=== PATIENT | female | born 1960 | race Caucasian/White ===

== ENCOUNTER 2019-11-12 14:50 | Outpatient (CLI) | payer BC, SELFPAY ==
--- NOTE | ~2019-11-12 | MM_ITS ---
EXAMINATION: MM screening [facility] BI w [facility] HISTORY: Screening mammogram TECHNIQUE: Craniocaudal and mediolateral oblique 3-D tomosynthesis images were obtained and synthetic 2-D images were generated. CAD analysis was submitted and interpreted. COMPARISON: 11/01/2018, 10/26/2017, 09/29/2016 bilateral digital screening mammogram examinations BREAST PARENCHYMAL COMPOSITION: FINDINGS: There is no evidence of suspicious mass, calcification, or architectural distortion to sugg est malignancy in either breast. There has been no suspicious interval change. IMPRESSION: 1. No mammographic evidence of malignancy. 2. Recommend routine screening mammography in one year. BI-RADS Category 1: Negative Reviewed, dictated and finalized at location A.
== END 2019-11-12 14:51 | disposition home or self-care (01) ==
LOC: CHSIMG 14:52
PROVIDERS: PCP Internal Medicine; Visit Provider Internal Medicine
DX: Z12.31 Encounter for screening mammogram for malignant neoplasm of breast (principal)
CPT/HCPCS: 77063; 77067

== ENCOUNTER 2020-04-30 11:56 | Outpatient (CLI) | payer BC, SELFPAY ==
[2020-05-01 01:17] LABS: SARS-CoV-2 RNA PCR Positive
== END 2020-04-30 11:57 | disposition home or self-care (01) ==
LOC: CHSLAB 12:00
PROVIDERS: PCP Internal Medicine; Visit Provider Internal Medicine
DX: U07.1 COVID-19 (principal)
CPT/HCPCS: 87635; C9803; U0003

== ENCOUNTER 2020-11-19 15:20 | Outpatient (CLI) | payer BC, SELFPAY ==
--- NOTE | ~2020-11-19 | MM_ITS ---
EXAMINATION: MM screening [facility] BI w [facility] HISTORY: Screening mammogram TECHNIQUE: Craniocaudal and mediolateral oblique 3-D tomosynthesis images were obtained and synthetic 2-D images were generated. CAD analysis was submitted and interpreted. COMPARISON: 11/12/2019, 11/01/2018, 10/26/2017 BREAST PARENCHYMAL COMPOSITION: There are scattered areas of fibroglandular density. FINDINGS: There is no evidence of suspicious mass, calcification, or architectural distortion to sugg est malignancy in either breast. There has been no suspicious interval change. IMPRESSION: 1. No mammographic evidence of malignancy. 2. Recommend routine screening mammography in one year. BI-RADS Category 1: Negative Reviewed, dictated and finalized at location A.
== END 2020-11-19 15:21 | disposition home or self-care (01) ==
LOC: CHSIMG 15:21
PROVIDERS: PCP Internal Medicine; Visit Provider Internal Medicine
DX: Z12.31 Encounter for screening mammogram for malignant neoplasm of breast (principal)
CPT/HCPCS: 77063; 77067

== ENCOUNTER 2020-12-10 16:28 | Outpatient (RCR) | payer BC, SELFPAY ==
--- NOTE | 2020-12-26 12:09 | PTOPEVAL ---
Thank you for referring Winter Santiago to [facility].? The patient is scheduled to be seen for therapy? ____x/week for ___ weeks. Please review, sign, date and return this plan of care WINSOME. I agree with and certify that the following plan of care is medically necessary. Referring Physician Date Admitting Provider: Attending Provider: Bishop Maynard MD Referring Provider: *PT Outpatient Evaluation Start: 12/10/20 16:41 Freq: Status: Active Protocol: Document 12/10/20 16:43 BARBARA (Rec: 12/10/20 17:09 BARBARA [id number]) Therapy Assessment Status Assessment Status Assessment Status Evaluation Evaluation Information Problem Diagnosis L shoulder pain Onset 06/22/20 Additional Evaluation Detail quick dash = 25% functionally declined Subjective Information patient reports she has been Query Text:As Reported By Patient/ having pain and tightness in Family the L shoulder since getting her flu shot last year. she reports she has been fighting it since then, but reports she has difficulty with reaching behind her back, reaching for her seatbelt, and reaching far out from her side. Prior Level of Function Comments Additional Prior Level of Function prior to her flu shot last Comments year, patient reports no issues in the L shoulder. 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 Pain Assessment Timing of Pain Assessment Timing of Pain Assessment Assessment Pain Scale Pain Scale Used Numeric (1 - 10) Self Report Pain Assessment Left Shoulder(s) Reported Pain Level 0 Pain Frequency Acute,Intermittent Lowest Pain Intensity 0 Greatest Pain Intensity 8 Pain Score Pain Score 0: Self Report Interventions Used Interventions Used By Clinicians Activity or ADL's,Education, Electrical Stimulation, Exercise,Heat Upper Extremity Range of Motion Scapular/ Shoulder Range of Motion Right Shoulder Flexion - Active 160 Shoulder Flexion - Passive 165 Shoulder Medial Rotation - Active 70 Shoulder Lateral Rotation - Active 100 Left Shoulder Flexion - Active 152 Shoulder Flexion - Passive 158 Shoulder Medial Rotation - Active 55 Shoulder Lateral Rotation - Active 70 Upper Extremity Muscle Strength Testing General Upper Extremity Strength Gross Upper Extremity Strength Comments 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
--- NOTE | 2020-12-26 16:54 | PCPTNOTE ---
On 12/26/20, the student, [Brynn Pinto, SPT], provided care and completed [employer] documentation on this patient. I have reviewed the student's documentation and agree with the findings.
--- NOTE | 2021-01-01 17:32 | PCPTNOTE ---
On 01/01/21, the student, [Brynn Pinto, SPT], provided care and completed [employer] documentation on this patient. I have reviewed the student's documentation and agree with the findings.
--- NOTE | 2021-01-07 18:10 | PCPTNOTE ---
On 01/07/21, the student, [Brynn Pinto, SPT], provided care and completed [employer] documentation on this patient. I have reviewed the student's documentation and agree with the findings.
== END 2021-01-07 23:59 | disposition home or self-care (01) ==
LOC: CHSPT 16:28
PROVIDERS: PCP Internal Medicine; Visit Provider Internal Medicine
DX: M25.512 Pain in left shoulder (principal)
CPT/HCPCS: 97014; 97110; 97140; 97161; 97530; G0283

== ENCOUNTER 2021-04-27 20:22 | Day surgery (SDC) | payer BC, SELFPAY ==
--- NOTE | ~2021-04-27 | XR_ITS ---
EXAMINATION: XR chest 1V portable DATE: 04/27/2021 22:09 INDICATION: Cough. TECHNIQUE: A single frontal view of the chest was obtained. COMPARISON: None. FINDINGS: The chest demonstrates clear lungs without pneumonia, pleural effusion, or pneumothorax. Th e heart size is normal. IMPRESSION: 1. No acute cardiopulmonary disease. Reviewed, dictated and finalized at location A.
[2021-04-27 20:33] VITALS: BP 158/82; PULSE 100; RESP 20; TEMP 36.9; O2SAT 100
[2021-04-27 20:49] LABS: Basophils Absolute Auto 0.1 K/mm3 (0.0-0.1); Basophils Percent Auto 0.6 % (0.2-1.2); Eosinophils Percent Auto 0.2 % (0-4.4); Hemoglobin 14.9 g/dL (12.0-15.0); Immature Granulocyte Absolute 0.03 K/mm3 (0.00-0.031); Immature Granulocyte Percent A 0.3 % (0-0.5); Lymphocytes Absolute Auto 1.98 K/mm3 (0.9-3.2); Mean Corpuscular HGB Conc 32.4 g/dl (32-36); Mean Corpuscular Hemoglobin 30.5 pg (26-34); Mean Corpuscular Volume 94.3 fl (80-100); Mean Platelet Volume 9.2 fl (7.4-10.4); Monocytes Absolute Auto 0.6 K/mm3 (0.1-0.6); Monocytes Percent Auto 5.4 % (2.6-8.5); Neutrophils Absolute Auto 8.9 K/mm3 (1.3-6.7); Neutrophils Percent Auto 76.5 % (45.5-73.1); Platelet Count Result 317 k/mm3 (150-375); Red Blood Count 4.88 M/mm3 (4.2-5.4); Red Cell Distribution Width 12.1 % (11.5-14.5); White Blood Count 11.6 K/mm3 (4.5-10.0)
[2021-04-27 20:58] LABS: Alanine Aminotransferase 28 U/L (4-35); Albumin Level 4.7 g/dL (3.5-5.1); Alkaline Phosphatase 100 U/L (38-126); Anion Gap 10 mmol/L (8-16); Aspartate Amino Transferase 36 U/L (14-36); Bilirubin,Total 0.6 mg/dL (0.2-1.3); Blood Urea Nitrogen 17 mg/dL (7-17); Calcium 9.6 mg/dL (8.4-10.2); Carbon Dioxide 23 mmol/L (22-30); Chloride 108 mmol/L (98-107); Estimated CRCL calculation 50 ml/min; Estimated Glomerular Filt Rate 57; Glucose 134 mg/dL (65-110); Lipase 220 U/L (23-300); Potassium 3.7 mmol/L (3.4-5.0); Sodium 141 mmol/L (137-145)
[2021-04-27 21:07] LABS: Add Urine Microscopic? YES; Appearance Urine Clear (Clear); Bilirubin Urine Negative (Negative); Blood Urine 3+ (Negative); Color Urine Yellow (Yellow); Glucose Urine UA Negative (Negative); Ketones Urine Trace mg/dL (Negative); Leukocyte Esterase Ur 2+ LEU/UL (Negative); Mucus Urine Rare /lpf; Nitrate Urine Negative (Negative); Protein Urine Negative (Negative); Specific Grav Ur 1.017 (1.001-1.035); Squamous Epithelial Cell Urine Rare /hpf (Few); Urobilinogen Urine Negative mg/dL (<2.0); WBC Urine 16-20 /hpf
[2021-04-27] MEDS: NITROGLYCERIN SL 0.4 MG TABLET SUBLINGUAL (21:23)
[2021-04-27] MEDS: GLUCAGON FOR INJ 1 MG VIAL IV PUSH (21:35)
[2021-04-27] MEDS: diazePAM INJ (*CRX) 10 MG/2 ML SYRINGE 5 MG IV PUSH (22:26)
[2021-04-27 22:29] VITALS: O2SAT 99
[2021-04-27 22:30] VITALS: BP 140/82; PULSE 77; RESP 18; O2SAT 97
--- NOTE | 2021-04-27 22:39 | ED.GENADULT ---
HPI - General Adult General Chief complaint: Unspecified Stated complaint: food bolus? Time Seen by Provider: 04/27/21 20:53 Source: RN notes reviewed History of Present Illness HPI narrative: Patient presents to emergency department from home for food bolus. Patient states she was eating pork chops this evening and had taken the first bite and then felt like the food became stuck in her lower throat she states she has pain in the lower mid chest pain is worse with attempting to swallow she states that she is unable to keep down her secretions whenever she tries to drink anything it comes mainly back up she did try drinking some soda at home to relieve the issues with no relief she states she is had no history of food bolus before in the past denies any fevers or chills Related Data Home Medications Medication Instructions Recorded Confirmed nabumetone mg 04/27/21 pravastatin 40 mg PO DAILY 04/27/21 Allergies Allergy/AdvReac Type Severity Reaction Status Date / Time NKDA Allergy Unknown Unknown Uncoded 04/27/21 21:59 Review of Systems Review of Systems: Gen.: Denies fevers or chills ENT: Denies congestion Respiratory: Denies shortness of breath or cough CV: Reports lower midsternal chest pain GI: See HPI Musculoskeletal: Denies back pain or muscle pain Neuro: Denies headache Skin: Denies rash Except as documented, all other systems reviewed and negative [facility] Past Medical History Medical History (Updated 04/27/21 @ 23:20 by Tyrell Gibbs DO) Hypercholesterolemia Social History Social History (Updated 04/27/21 @ 22:41 by Tyrell Gibbs DO) Smoking status: Never smoker Exam Narrative: APPEARANCE: No acute distress, nontoxic, resting in bed EYES: EOMI HEENT: Normocephalic, atraumatic, OMM airway patent RESPIRATORY: No respiratory distress Clear to auscultation bilaterally with no rhonchi wheezing or rales. CARDIOVASCULAR: Regular rate and rhythm without murmurs rubs or gallops. ABDOMINAL: Soft, nontender, nondistended, no rebound or guarding MUSCULOSKELETAl: Moves all extremities. NEURO: Awake and alert. Following commands, speech normal, no focal deficits SKIN:: Warm, dry. No rashes lesions or abrasions PSYCHIATRIC: Normal affect/mood, Course Course Emergency Course: Patient was given soda and jumped up and down in room with no passage of food bolus patient was then given nitroglycerin dissolved in 10 mL of water again with unable to pass and vomiting of water patient was then given glucagon and then Valium again with no movement of food bolus All discussed Dr. Key presentation work-up will take patient to the endoscopy lab at this time Constipation plan for endoscopy lab in agreement Vital Signs Vital signs: Vital Signs Temperature 98.5 F 04/27/21 20:33 Pulse Rate 100 04/27/21 20:33 Respiratory Rate 20 04/27/21 20:33 Blood Pressure 158/82 H 04/27/21 20:33 Pulse Oximetry 100 04/27/21 20:33 Temperature 98.5 F 04/27/21 20:33 Pulse Rate 77 04/27/21 22:30 Respiratory Rate 18 04/27/21 22:30 Blood Pressure 140/82 04/27/21 22:30 Pulse Oximetry 97 04/27/21 22:30 Medical Decision Making Vital Signs Vital Signs: Vital Signs Temperature 98.5 F 04/27/21 20:33 Pulse Rate 100 04/27/21 20:33 Respiratory Rate 20 04/27/21 20:33 Blood Pressure 158/82 H 04/27/21 20:33 Pulse Oximetry 100 04/27/21 20:33 Temperature 98.5 F 04/27/21 20:33 Pulse Rate 77 04/27/21 22:30 Respiratory Rate 18 04/27/21 22:30 Blood Pressure 140/82 04/27/21 22:30 Pulse Oximetry 97 04/27/21 22:30 Lab Data Result diagrams: 04/27/21 20:39 04/27/21 20:39 Labs: Lab Results 04/27/21 04/27/21 04/27/21 Range/Units 20:39 20:39 20:43 WBC 11.6 H (4.5-10.0) K/mm3 RBC 4.88 (4.2-5.4) M/mm3 Hgb 14.9 (12.0-15.0) g/dL Hct 46.0 (37.0-47.0) % MCV 94.3 (80-100) fl MCH 30.5 (26-34) pg MCHC 3
[2021-04-27] MEDS: SODIUM CHLORIDE 0.9% IV 1,000 ML 999 ML IV CONT (23:19)
--- NOTE | 2021-04-27 23:52 | WPDANESEPP ---
Anes - Eval Pre Procedure Procedure: EGD Date/Time: 04/27/21 23:52 Surgeon: Shahid Pre Op Diagnosis: food bolus? Patient Data Age: 60 Gender: F Height: 1.68 m Weight: 65.9 kg Last Vital Signs Temp 36.9 C 04/27/21 20:33 Pulse 77 04/27/21 22:30 Resp 18 04/27/21 22:30 BP 140/82 04/27/21 22:30 Pulse Ox 97 04/27/21 22:30 Allergies Allergy/AdvReac Type Severity Reaction Status Date / Time NKDA Allergy Unknown Unknown Uncoded 04/27/21 21:59 Home Medications Medication Instructions Recorded Confirmed Type nabumetone mg 04/27/21 History pravastatin 40 mg PO DAILY 04/27/21 History Laboratory Tests 04/27/21 04/27/21 04/27/21 20:39 20:39 20:43 WBC 11.6 K/mm3 H K/mm3 (4.5-10.0) RBC 4.88 M/mm3 M/mm3 (4.2-5.4) Hgb 14.9 g/dL g/dL (12.0-15.0) Hct 46.0 % % (37.0-47.0) MCV 94.3 fl fl (80-100) MCH 30.5 pg pg (26-34) MCHC 32.4 g/dl g/dl (32-36) RDW 12.1 % % (11.5-14.5) Plt Count 317 k/mm3 k/mm3 (150-375) MPV 9.2 fl fl (7.4-10.4) Immature Gran % (Auto) 0.3 % % (0-0.5) Neut % (Auto) 76.5 % H % (45.5-73.1) Lymph % (Auto) 17.0 % L % (18.3-44.2) [place] % (Auto) 5.4 % % (2.6-8.5) Eos % (Auto) 0.2 % % (0-4.4) Baso % (Auto) 0.6 % % (0.2-1.2) Lymph # (Auto) 1.98 K/mm3 K/mm3 (0.9-3.2) [place] # (Auto) 0.6 K/mm3 K/mm3 (0.1-0.6) Eos # (Auto) 0.0 K/mm3 K/mm3 (0-0.3) Baso # (Auto) 0.1 K/mm3 K/mm3 (0.0-0.1) Abs Immat Gran (auto) 0.03 K/mm3 K/mm3 (0.00-0.031) Absolute Neuts (auto) 8.9 K/mm3 H K/mm3 (1.3-6.7) Absolute Nucleated RBC 0.0 K/mm3 K/mm3 (0.0-0.012) Nucleated RBC % 0.0 % % (0.0-0.2) Sodium 141 mmol/L mmol/L (137-145) Potassium 3.7 mmol/L mmol/L (3.4-5.0) Chloride 108 mmol/L H mmol/L (98-107) Carbon Dioxide 23 mmol/L mmol/L (22-30) Anion Gap 10 mmol/L mmol/L (8-16) BUN 17 mg/dL mg/dL (7-17) Creatinine 1.00 mg/dL mg/dL (0.7-1.0) Estim Creat Clear Calc 50 ml/min ml/min Estimated GFR 57 L (59 - ) Glucose 134 mg/dL H mg/dL (65-110) Calcium 9.6 mg/dL mg/dL (8.4-10.2) Total Bilirubin 0.6 mg/dL mg/dL (0.2-1.3) AST 36 U/L U/L (14-36) ALT 28 U/L U/L (4-35) Alkaline Phosphatase 100 U/L U/L (38-126) Total Protein 8.0 g/dL g/dL (6.3-8.2) Albumin 4.7 g/dL g/dL (3.5-5.1) Lipase 220 U/L U/L (23-300) Urine Color Yellow (Yellow) Urine Appearance Clear (Clear) Urine pH 5.0 (5.0-9.0) Ur Specific [place] 1.017 (1.001-1.035) Urine Protein Negative mg/dL mg/dL (Negative) Urine Glucose (UA) Negative mg/dL mg/dL (Negative) Urine Ketones Trace mg/dL mg/dL (Negative) Ur Blood (Man) 3+ H (Negative) Urine Nitrate Negative (Negative) Urine Bilirubin Negative (Negative) Urine Urobilinogen Negative mg/dL mg/dL (<2.0) Leukocyte Esterase Rfl 2+ ANNE/UL H ANNE/UL (Negative) Urine RBC 11-20 /hpf H /hpf (0-2) Urine WBC 16-20 /hpf H /hpf Ur Squamous Epith Cells Rare /hpf /hpf (Few) Urine Mucus Rare /lpf /lpf Patient hx anesthesia problems: none Family hx anesthesia problems: none [facility] Past Medical History Medical History (Updated 04/27/21 @ 23:20 by Tyrell Gibbs DO) Hypercholesterolemia Social History Social History (Updated 04/27/21 @ 22:41 by Tyrell Gibbs DO) Smoking status: Never smoker Exam Day of Procedure 04/27/21 23:52
[2021-04-28 00:30] VITALS: BP 140/82; PULSE 93; RESP 18; O2SAT 100
[2021-04-28] MEDS: LACTATED RINGERS 1,000 ML 150 ML IV CONT ×2 (00:31→00:33)
--- NOTE | 2021-04-28 00:31 | WPDANESEPPF ---
Anes - Initial Pre Proc Eval Procedure: Operation Date: 04/28/21 00:30 Proposed Procedures p Esophagogastroduodenoscopy - Maxwell Hanna MD Date/Time: 04/28/21 00:31 Surgeon: Maxwell Hanna MD Pre Op Diagnosis: food bolus? Patient Data Age: 60 Gender: F Height: 1.68 m Weight: 65.9 kg Last Vital Signs Temp 36.9 C 04/27/21 20:33 Pulse 77 04/27/21 22:30 Resp 18 04/27/21 22:30 BP 140/82 04/27/21 22:30 Pulse Ox 97 04/27/21 22:30 Allergies Allergy/AdvReac Type Severity Reaction Status Date / Time NKDA Allergy Unknown Unknown Uncoded 04/27/21 21:59 Home Medications Medication Instructions Recorded Confirmed Type nabumetone mg 04/27/21 History pravastatin 40 mg PO DAILY 04/27/21 History nitrofurantoin monohyd/m-cryst 100 mg PO Q12H 5 Days #10 cap 04/28/21 Rx [Macrobid] Laboratory Tests 04/27/21 04/27/21 04/27/21 20:39 20:39 20:43 WBC 11.6 K/mm3 H K/mm3 (4.5-10.0) RBC 4.88 M/mm3 M/mm3 (4.2-5.4) Hgb 14.9 g/dL g/dL (12.0-15.0) Hct 46.0 % % (37.0-47.0) MCV 94.3 fl fl (80-100) MCH 30.5 pg pg (26-34) MCHC 32.4 g/dl g/dl (32-36) RDW 12.1 % % (11.5-14.5) Plt Count 317 k/mm3 k/mm3 (150-375) MPV 9.2 fl fl (7.4-10.4) Immature Gran % (Auto) 0.3 % % (0-0.5) Neut % (Auto) 76.5 % H % (45.5-73.1) Lymph % (Auto) 17.0 % L % (18.3-44.2) [place] % (Auto) 5.4 % % (2.6-8.5) Eos % (Auto) 0.2 % % (0-4.4) Baso % (Auto) 0.6 % % (0.2-1.2) Lymph # (Auto) 1.98 K/mm3 K/mm3 (0.9-3.2) [place] # (Auto) 0.6 K/mm3 K/mm3 (0.1-0.6) Eos # (Auto) 0.0 K/mm3 K/mm3 (0-0.3) Baso # (Auto) 0.1 K/mm3 K/mm3 (0.0-0.1) Abs Immat Gran (auto) 0.03 K/mm3 K/mm3 (0.00-0.031) Absolute Neuts (auto) 8.9 K/mm3 H K/mm3 (1.3-6.7) Absolute Nucleated RBC 0.0 K/mm3 K/mm3 (0.0-0.012) Nucleated RBC % 0.0 % % (0.0-0.2) Sodium 141 mmol/L mmol/L (137-145) Potassium 3.7 mmol/L mmol/L (3.4-5.0) Chloride 108 mmol/L H mmol/L (98-107) Carbon Dioxide 23 mmol/L mmol/L (22-30) Anion Gap 10 mmol/L mmol/L (8-16) BUN 17 mg/dL mg/dL (7-17) Creatinine 1.00 mg/dL mg/dL (0.7-1.0) Estim Creat Clear Calc 50 ml/min ml/min Estimated GFR 57 L (59 - ) Glucose 134 mg/dL H mg/dL (65-110) Calcium 9.6 mg/dL mg/dL (8.4-10.2) Total Bilirubin 0.6 mg/dL mg/dL (0.2-1.3) AST 36 U/L U/L (14-36) ALT 28 U/L U/L (4-35) Alkaline Phosphatase 100 U/L U/L (38-126) Total Protein 8.0 g/dL g/dL (6.3-8.2) Albumin 4.7 g/dL g/dL (3.5-5.1) Lipase 220 U/L U/L (23-300) Urine Color Yellow (Yellow) Urine Appearance Clear (Clear) Urine pH 5.0 (5.0-9.0) Ur Specific [place] 1.017 (1.001-1.035) Urine Protein Negative mg/dL mg/dL (Negative) Urine Glucose (UA) Negative mg/dL mg/dL (Negative) Urine Ketones Trace mg/dL mg/dL (Negative) Ur Blood (Man) 3+ H (Negative) Urine Nitrate Negative (Negative) Urine Bilirubin Negative (Negative) Urine Urobilinogen Negative mg/dL mg/dL (<2.0) Leukocyte Esterase Rfl 2+ ANNE/UL H ANNE/UL (Negative) Urine RBC 11-20 /hpf H /hpf (0-2) Urine WBC 16-20 /hpf H /hpf Ur Squamous Epith Cells Rare /hpf /hpf (Few) Urine Mucus Rare /lpf /lpf Patient hx anesthesia problems: none Family hx anesthesia problems: none PMFSH Past Medical History Medical History Hypercholesterolemia Social History Social Histor
--- NOTE | 2021-04-28 00:34 | PM.HPGS ---
History of Present Illness History of Present Illness Consent: Risks, benefits, and alternatives have been discussed and questions answered. Patient agrees to proceed with procedure. Chief complaint: food bolus? Narrative: Winter Santiago is a 60 year old female with food bolus after ate pork around 6pm, medical treatment in the ER did not help and still symptomatic. Never had EGD. Review of Systems Constitutional: Constitutional: Denies headache(s) and Denies weakness Eyes: Eyes: Denies blurry vision ENT: Reports Normal hearing present, Denies headache(s) and Denies neck pain Cardiovascular: Cardiovascular: Denies chest pain and Denies dyspnea Respiratory: Respiratory: Denies dyspnea Gastrointestinal: Gastrointestinal: Reports no additional gastrointestinal complaints Genitourinary: Genitourinary: Denies dysuria Musculoskeletal: Musculoskeletal: Denies neck pain Integumentary/Breasts: Skin/Breast: Denies dry skin Neurologic: Reports Normal hearing present, Denies headache(s) and Denies weakness Psychiatric: Psychiatric: Denies anxiety Endocrine: Endocrine: Denies change in body appearance Hematologic/Lymphatic: Hematologic/Lymphatic: Denies easy bleeding Allergic/Immunologic: Allergic/Immunologic: Denies urticaria PMFSH Past Medical History Medical History Hypercholesterolemia Social History Social History Smoking status: Never smoker Meds Home Medications and Allergies Home Medications Medication Instructions Recorded Confirmed Type nabumetone mg 04/27/21 History pravastatin 40 mg PO DAILY 04/27/21 History nitrofurantoin monohyd/m-cryst 100 mg PO Q12H 5 Days #10 cap 04/28/21 Rx [Macrobid] Allergies Allergy/AdvReac Type Severity Reaction Status Date / Time NKDA Allergy Unknown Unknown Uncoded 04/27/21 21:59 Vital Signs Vital Signs - 24 hr 04/27/21 20:33 04/27/21 22:29 04/27/21 22:30 Temperature 98.5 F Pulse Rate 100 77 Respiratory Rate 20 18 Blood Pressure 158/82 H 140/82 Pulse Oximetry 100 99 97 Exam Const: General: comfortable and no acute distress HENMT: General nose exam: Normal nares present Eyes: General: appearance normal, both eyes and all related structures Neck: Neck: no JVD Resp: Auscultation: clear to auscultation bilaterally Cardio: Rate: regular rate Rhythm: regular rhythm GI: Inspection: non-distended GI Palp: Yes Soft to palpation Skin: General skin exam: normal color Neuro: General: gait normal Speech: normal speech Extrem: General: normal to inspection Psych: Mental Status: mental status grossly normal Assessment and Plan Assessment and plan (1) Food impaction of esophagus: Code(s): T18.128A - Food in esophagus causing other injury, initial encounter Status: Acute Assessment and Plan: urgent EGD
[2021-04-28 00:48] VITALS: BP 118/69; PULSE 83; RESP 23; O2SAT 100
[2021-04-28 00:58] VITALS: BP 136/75; PULSE 84; RESP 17; O2SAT 100
[2021-04-28 01:08] VITALS: BP 129/82; PULSE 76; RESP 17; O2SAT 100
== END 2021-04-28 01:23 | disposition home or self-care (01) ==
LOC: ANHED 23:20 → ANHENDO 04-28 00:20
PROVIDERS: Emergency Provider Emergency Medicine; PCP Internal Medicine; Visit Provider Internal Medicine Gastroenterology
PROC: 0DJ08ZZ Inspection of Upper Intestinal Tract, Via Natural or Artificial Opening Endoscopic (ICD-10-PCS; CPT 43235; principal; 2021-04-28 00:30)
DX: T18.128A Food in esophagus causing other injury, initial encounter (principal); K22.2 Esophageal obstruction; K44.9 Diaphragmatic hernia without obstruction or gangrene; E78.00 Pure hypercholesterolemia, unspecified; N39.0 Urinary tract infection, site not specified
CPT/HCPCS: 43249; 43247; 36415; 71045; 80053; 81001; 81025; 83690; 85025; 87086; 87088; 96361; 96374; 96375; 99285; A9270; C1726; J1610; J2704; J3360; J7030; J7120

== ENCOUNTER → 2021-06-05 04:50 | Outpatient (CLI) | payer BC, SELFPAY ==
[2021-06-05 17:47] LABS: SARS-CoV-2 RNA PCR Negative
== END ==
PROVIDERS: PCP Internal Medicine; Visit Provider Internal Medicine Gastroenterology
DX: Z01.812 Encounter for preprocedural laboratory examination (principal); Z20.822 Contact with and (suspected) exposure to COVID-19
CPT/HCPCS: C9803; U0003; U0005

== ENCOUNTER 2021-06-08 00:41 | Day surgery (SDC) | payer BC, SELFPAY ==
[2021-05-22 11:23] VITALS: BMI 24.2
--- NOTE | 2021-06-05 18:52 | WPDANESEPPF ---
Anes - Initial Pre Proc Eval Procedure: Operation Date: 06/08/21 08:00 Proposed Procedures p Esophagogastroduodenoscopy - Maxwell Hanna MD Date/Time: 06/05/21 18:52 Surgeon: Maxwell Hanna MD Pre Op Diagnosis: schatzki's ring, dysphagia Patient Data Age: 60 Gender: F Height: 1.68 m Weight: 68 kg Allergies Allergy/AdvReac Type Severity Reaction Status Date / Time NKDA Allergy Unknown Unknown Uncoded 05/22/21 11:20 Home Medications Medication Instructions Recorded Confirmed Type nabumetone 750 mg PO TID PRN 04/27/21 06/08/21 History pravastatin 20 mg PO DAILY 04/27/21 06/08/21 History cholecalciferol (vitamin D3) 50 mcg PO DAILY 05/22/21 06/08/21 History [Vitamin D3] multivitamin 1 tablet PO DAILY 05/22/21 06/08/21 History vitamin E 400 unit PO DAILY 05/22/21 06/08/21 History Patient hx anesthesia problems: none Family hx anesthesia problems: none Results Review: All pre-operative results and documents have been reviewed as part of the pre-operative evaluation. [facility] Past Medical History Medical History Hypercholesterolemia Surgical History Surgical History (Updated 06/05/21 @ 18:53 by Samson Cancino DO) History of appendectomy History of hysterectomy Social History Social History Smoking status: Never smoker Alcohol intake: current Living arrangements: with family Spiritual care concerns: No Anes - Eval Final PreProcedure Day of Procedure 06/05/21 18:52 Patient weight: normal Heart: regular rate and rhythm Lungs: clear to auscultation and normal air movement Airway: Mallampati scale class II Neurological: alert and oriented Last oral intake: >/= 8 hours ASA classification: II Emergent: no Anesthetic plan: proceed Anesthesia type and monitoring: general GIVS and standard monitoring Results Review: All pre-operative results and documents have been reviewed as part of the pre-operative evaluation. Informed Consent: The patient's anesthetic plan and its attendant risks and benefits were discussed with the patient/family/POA. Questions were solicited and answers provided to the satisfaction of the patient/family/POA.
[2021-06-08 06:50] VITALS: BP 129/69; PULSE 65; RESP 16; TEMP 36.6; O2SAT 100
[2021-06-08] MEDS: LACTATED RINGERS 1,000 ML 150 ML IV CONT (07:02)
--- NOTE | 2021-06-08 07:54 | PM.HPGS ---
History of Present Illness History of Present Illness Consent: Risks, benefits, and alternatives have been discussed and questions answered. Patient agrees to proceed with procedure. Chief complaint: schatzki's ring, dysphagia Narrative: Winter Santiago is a 60 year old female with food bolus few weeks ago, ring dilated up to 16mm with balloon, now better Review of Systems Constitutional: Constitutional: Denies headache(s) and Denies weakness Eyes: Eyes: Denies blurry vision ENT: Reports Normal hearing present, Denies headache(s) and Denies neck pain Cardiovascular: Cardiovascular: Denies chest pain and Denies dyspnea Respiratory: Respiratory: Denies dyspnea Gastrointestinal: Gastrointestinal: Reports no additional gastrointestinal complaints Genitourinary: Genitourinary: Denies dysuria Musculoskeletal: Musculoskeletal: Denies neck pain Integumentary/Breasts: Skin/Breast: Denies dry skin Neurologic: Reports Normal hearing present, Denies headache(s) and Denies weakness Psychiatric: Psychiatric: Denies anxiety Endocrine: Endocrine: Denies change in body appearance Hematologic/Lymphatic: Hematologic/Lymphatic: Denies easy bleeding Allergic/Immunologic: Allergic/Immunologic: Denies urticaria PMFSH Past Medical History Medical History (Updated 06/08/21 @ 07:55 by Maxwell Hanna MD) Esophageal ring Hypercholesterolemia Surgical History Surgical History (Updated 06/05/21 @ 18:53 by Samson Cancino DO) History of appendectomy History of hysterectomy Social History Social History Smoking status: Never smoker Alcohol intake: current Living arrangements: with family Spiritual care concerns: No Meds Home Medications and Allergies Home Medications Medication Instructions Recorded Confirmed Type nabumetone 750 mg PO TID PRN 04/27/21 06/08/21 History pravastatin 20 mg PO DAILY 04/27/21 06/08/21 History cholecalciferol (vitamin D3) 50 mcg PO DAILY 05/22/21 06/08/21 History [Vitamin D3] multivitamin 1 tablet PO DAILY 05/22/21 06/08/21 History vitamin E 400 unit PO DAILY 05/22/21 06/08/21 History Allergies Allergy/AdvReac Type Severity Reaction Status Date / Time NKDA Allergy Unknown Unknown Uncoded 05/22/21 11:20 Vital Signs Vital Signs - 24 hr 06/08/21 06:50 Temperature 97.8 F Pulse Rate 65 Respiratory Rate 16 Blood Pressure 129/69 Pulse Oximetry 100 Exam Const: General: comfortable and no acute distress HENMT: General nose exam: Normal nares present Eyes: General: appearance normal, both eyes and all related structures Neck: Neck: no JVD Resp: Auscultation: clear to auscultation bilaterally Cardio: Rate: regular rate Rhythm: regular rhythm GI: Inspection: non-distended GI Palp: Yes Soft to palpation Skin: General skin exam: normal color Neuro: General: gait normal Speech: normal speech Extrem: General: normal to inspection Psych: Mental Status: mental status grossly normal Assessment and Plan Assessment and plan (1) Esophageal ring: Code(s): K22.2 - Esophageal obstruction Status: Acute Assessment and Plan: egd with dilation
[2021-06-08 08:10] VITALS: BP 103/64; PULSE 68; RESP 16; O2SAT 100
[2021-06-08 08:20] VITALS: BP 114/70; PULSE 61; RESP 15; O2SAT 100
[2021-06-08 08:30] VITALS: BP 121/73; PULSE 58; RESP 15; O2SAT 100
== END 2021-06-08 08:58 | disposition home or self-care (01) ==
PROVIDERS: PCP Internal Medicine; Visit Provider Internal Medicine Gastroenterology
PROC: 0DJ08ZZ Inspection of Upper Intestinal Tract, Via Natural or Artificial Opening Endoscopic (ICD-10-PCS; CPT 43235; principal; 2021-06-08 08:00)
DX: R13.19 Other dysphagia (principal); K22.2 Esophageal obstruction; K44.9 Diaphragmatic hernia without obstruction or gangrene; K31.7 Polyp of stomach and duodenum; E78.00 Pure hypercholesterolemia, unspecified
CPT/HCPCS: 43249; C1726; J2001; J2704; J7120

== ENCOUNTER 2021-11-20 06:56 | Outpatient (CLI) | payer BC, SELFPAY ==
--- NOTE | ~2021-11-20 | MM_ITS ---
EXAMINATION: MM screening [facility] BI w [facility] HISTORY: Screening mammogram TECHNIQUE: Craniocaudal and mediolateral oblique 3-D tomosynthesis images were obtained and synthetic 2-D images were generated. CAD analysis was submitted and interpreted. COMPARISON: 11/19/2020, 11/12/2019, 11/01/2018 BREAST PARENCHYMAL COMPOSITION: There are scattered areas of fibroglandular density. FINDINGS: There is no suspicious mass, calcification, or architectural distortion to suggest malignan cy in either breast. There has been no suspicious interval change. IMPRESSION: 1. No mammographic evidence of malignancy. 2. Recommend routine screening mammography in one year. BI-RADS Category 1: Negative Reviewed, dictated and finalized at location A.
== END 2021-11-20 06:57 | disposition home or self-care (01) ==
LOC: CHSIMG 06:58
PROVIDERS: PCP Internal Medicine; Visit Provider Internal Medicine
DX: Z12.31 Encounter for screening mammogram for malignant neoplasm of breast (principal)
CPT/HCPCS: 77063; 77067

== ENCOUNTER 2021-12-25 14:57 | Outpatient (CLI) | payer BC, SELFPAY ==
--- NOTE | ~2021-12-25 | DEXA_ITS ---
Bone Density Report Name: VIRGIE COLEY Age: 61 Sex: Female Ethnicity: White Date of : 1960 Indication: postmenopausal; screening for osteoporosis; height loss; hysterectomy; Referring Provider: Bishop Maynard Study: Bone densitometry was performed. Exam Date: December 25, 2021 Accession number: [id number] Bone Density: Region BMD T-score Z-score Classification AP Spine(L1-L4) 0.830 -2.0 -0.5 Osteopenia Femoral Neck (Left) 0.692 -1.4 -0.1 Osteopenia Total Hip (Left) 0.777 -1.4 -0.4 Osteopenia Femoral Neck (Right) 0.639 -1.9 -0.6 Osteopenia Total Hip (Right) 0.770 -1.4 -0.4 Osteopenia Femoral Neck Mean 0.665 -1.7 -0.4 Osteopenia Total Hip Mean 0.774 -1.4 -0.4 Osteopenia World Health Organization criteria for BMD impression classify patients as: Normal (T-score at or above -1.0), Osteopenia (T-score between -1.0 and -2.5), or Osteoporosis (T-score at or below -2.5). 10-year Fracture Risk(1): Major Osteoporotic Fracture 8.6% Hip Fracture 1.0% Reported Risk Factors: [place] (), Neck BMD=0.639, BMI=22.6 (1) FRAX(R) Version 3.08. Fracture probability calculated for an untreated patient. Fracture probability may be lower if the patient has received treatment. Clinical Information Provided by Patient: Has used the following medications: Vitamin D, Calcium Has the following medical conditions: Hysterectomy Patient maximum height was 67 Menopause Age: 51 No regular weight bearing exercise Does not regularly consume dairy products Drinks caffeinated beverages Onset of menses at age 17 Number of children 2 Impression: The patient has low bone mass, based on the Total Spine T-score. Discussion: BONE DENSITY IS LOW AT ONE OR MORE SKELETAL SITES. This patient's lowest T-score is low at one or more skeletal sites. It meets the World Health Organization's (WHO) criteria for ?low bone mass? (T-score between -1.0 and -2.5). The patient's 10-year risk of fracture as calculated by FRAX is less than the threshold where pharmacological therapy is recommended by the National Osteoporosis Foundation (NOF). However, all treatment decisions require clinical judgment and consideration of individual patient factors, including patient preferences, comorbidities, previous drug use, risk factors not captured in the FRAX model (e.g., frailty, falls, vitamin D deficiency, increased bone turnover, interval significant decline in bone density) and possible under or overestimation of fracture risk by FRAX. The patient should follow a healthful lifestyle (good nutrition with adequate calcium and vitamin D, and appropriate weight-bearing exercise). Follow-Up: Consider repeating this study in 2 to 3 years to reassess this patient's status, or sooner if there is some new clinical in
== END 2021-12-25 14:58 | disposition home or self-care (01) ==
LOC: CHSIMG 14:59
PROVIDERS: PCP Internal Medicine; Visit Provider Internal Medicine
DX: Z13.820 Encounter for screening for osteoporosis (principal)
CPT/HCPCS: 77080

== ENCOUNTER 2022-01-21 01:03 | Day surgery (SDC) | payer BC, SELFPAY ==
[2022-01-04 10:20] VITALS: BMI 22.4
[2022-01-21 06:43] VITALS: BP 122/82; PULSE 93; RESP 16; TEMP 36.3; O2SAT 100
[2022-01-21] MEDS: LACTATED RINGERS 1,000 ML 150 ML IV CONT (06:53)
--- NOTE | 2022-01-21 07:51 | PM.IMHP ---
H&P: HPI History of Present Illness Date/Time: 01/21/22 07:51 Chief Complaint: Screening for colorectal cancer Narrative: this is a 61-year-old woman who presents for colonoscopy. Her last colonoscopy was 10 years ago and was normal. She only has a family history of colon cancer in her grandfather, but no first-degree relatives. She denies any hematochezia or melena. Review of Systems Review of Systems: All systems reviewed & are unremarkable except as noted in HPI and below Constitutional: Constitutional: Denies chills, Denies fever(s), Denies headache(s) and Denies weight loss Eyes: Eyes: Denies change in vision ENT: Denies dizziness, Denies headache(s), Denies neck mass and Denies throat swelling Cardiovascular: Cardiovascular: Denies chest pain, Denies lightheadedness and Denies dyspnea Respiratory: Respiratory: Denies cough, Denies dyspnea and Denies wheezing Gastrointestinal: Gastrointestinal: Denies abdominal pain, Denies change in bowel habits, Denies nausea and Denies vomiting Genitourinary: Genitourinary: Denies hematuria and Denies dysuria Musculoskeletal: Musculoskeletal: Reports as per HPI Integumentary/Breasts: Skin/Breast: Reports as per HPI Neurologic: Denies dizziness and Denies headache(s) Allergic/Immunologic: Allergic/Immunologic: Denies throat swelling and Denies wheezing PMF Past Medical History Medical History (Updated 01/21/22 @ 07:52 by Roberth Garcia DO) Esophageal ring Hypercholesterolemia Surgical History Surgical History (Updated 06/05/21 @ 18:53 by Samson Cancino DO) History of appendectomy History of hysterectomy Social History Social History Smoking status: Never smoker Alcohol intake: never Substance use: never Substance use type: does not use Living arrangements: with family Spiritual care concerns: No Meds Home Medications and Allergies Home Medications Medication Instructions Recorded Confirmed Type cholecalciferol (vitamin D3) 25 50 mcg PO DAILY 05/22/21 01/21/22 History mcg (1,000 unit) capsule (Vitamin D3) multivitamin 1 tablet PO DAILY 05/22/21 01/21/22 History vitamin E 400 unit capsule 400 unit PO DAILY 05/22/21 01/21/22 History pravastatin 10 mg tablet 10 mg PO DAILY 01/04/22 01/21/22 History Allergies Allergy/AdvReac Type Severity Reaction Status Date / Time NKDA Allergy Unknown Unknown Uncoded 01/21/22 06:42 Vital Signs Vital Signs - 24 hr 01/21/22 06:43 Temperature 36.3 C L Pulse Rate 93 Respiratory Rate 16 Blood Pressure 122/82 Pulse Oximetry 100 Oxygen Delivery Room Air Exam Const: General: no acute distress and alert Orientation/consciousness: patient oriented x3 HENMT: Head: normocephalic and atraumatic Ears: hearing grossly normal bilaterally General nose exam: Normal nares present Mouth: Yes Normal oral and palatal mucosa present Eyes: Periorbital: periorbital findings normal Sclera: sclerae normal EOM: EOMs intact bilaterally Neck: Neck: normal visual inspection, no lymphadenopathy and trachea midline Chest: Chest palpation & inspection: normal inspection of the chest Resp: Effort & Inspection: normal respiratory effort Auscultation: clear to auscultation bilaterally Cardio: Jugular venous distension: no JVD Rate: regular rate Rhythm: regular rhythm Heart sounds: S1 normal heart sound present and S2 normal heart sound present Peripheral pulses: Peripheral pulses 2+ throughout GI: Inspection: normal to inspection GI Palp: Yes Soft to palpation, No Tenderness to palpation present (GI), No Guarding due to palpation present (GI) and No Rebound tenderness present Percussion: Yes normal to percussion Auscultation: normal bowel sounds : General: Yes no CVA tenderness Back/Spine/Pelvis: Back: no CVA tenderness Neuro: General: patient oriented x3, no focal motor deficits and CN's II-XI intact bilater
--- NOTE | 2022-01-21 08:12 | P.PNAN_ITS ---
Anes - Initial Pre Proc Eval Procedure: Operation Date: 01/21/22 08:00 Proposed Procedures p Screening Colonoscopy - Roberth Garcia DO Date/Time: 01/21/22 08:12 Surgeon: Roberth Garcia DO Pre Op Diagnosis: neoplasm screening Patient Data Age: 61 Gender: F Height: 1.69 m Weight: 62.4 kg Last Vital Signs Temp 97.4 F L 01/21/22 06:43 Pulse 93 01/21/22 06:43 Resp 16 01/21/22 06:43 BP 122/82 01/21/22 06:43 Pulse Ox 100 01/21/22 06:43 O2 Del Method Room Air 01/21/22 06:43 Allergies Allergy/AdvReac Type Severity Reaction Status Date / Time No Known Allergies Allergy Verified 01/21/22 08:05 Home Medications Medication Instructions Recorded Confirmed Type cholecalciferol (vitamin D3) 25 50 mcg PO DAILY 05/22/21 01/21/22 History mcg (1,000 unit) capsule (Vitamin D3) multivitamin 1 tablet PO DAILY 05/22/21 01/21/22 History vitamin E 400 unit capsule 400 unit PO DAILY 05/22/21 01/21/22 History pravastatin 10 mg tablet 10 mg PO DAILY 01/04/22 01/21/22 History Patient hx anesthesia problems: none Family hx anesthesia problems: none Results Review: All pre-operative results and documents have been reviewed as part of the pre- operative evaluation. [facility] Past Medical History Medical History (Updated 01/21/22 @ 07:52 by Roberth Garcia DO) Esophageal ring Hypercholesterolemia Surgical History Surgical History (Updated 06/05/21 @ 18:53 by Samson Cancino DO) History of appendectomy History of hysterectomy Social History Social History Smoking status: Never smoker Alcohol intake: never Substance use: never Substance use type: does not use Living arrangements: with family Spiritual care concerns: No Anes - Eval Final PreProcedure Day of Procedure 01/21/22 08:12 Patient weight: normal Heart: regular rate and rhythm Lungs: clear to auscultation Airway: Mallampati scale class II Neurological: alert and oriented Last oral intake: >/= 8 hours ASA classification: II Emergent: no Anesthetic plan: proceed Anesthesia type and monitoring: general GIVS and standard monitoring Results Review: All pre-operative results and documents have been reviewed as part of the pre- operative evaluation. Informed Consent: The patient's anesthetic plan and its attendant risks and benefits were discussed with the patient/family/POA. Questions were solicited and answers provided to the satisfaction of the patient/family/POA.
[2022-01-21 08:22] VITALS: BP 94/64; PULSE 79; RESP 20; O2SAT 99
[2022-01-21 08:32] VITALS: BP 120/73; PULSE 80; RESP 24; O2SAT 99
[2022-01-21 08:42] VITALS: BP 117/78; PULSE 68; RESP 24; O2SAT 98
== END 2022-01-21 08:52 | disposition home or self-care (01) ==
PROVIDERS: PCP Internal Medicine; Visit Provider Surgery
PROC: 0DJD8ZZ Inspection of Lower Intestinal Tract, Via Natural or Artificial Opening Endoscopic (ICD-10-PCS; CPT 45378; principal; 2022-01-21 08:00)
DX: Z12.11 Encounter for screening for malignant neoplasm of colon (principal); K57.30 Diverticulosis of large intestine without perforation or abscess without bleeding; E78.00 Pure hypercholesterolemia, unspecified
CPT/HCPCS: 45378; J2704; J7120

== ENCOUNTER 2022-08-30 00:39 | Day surgery (SDC) | payer BC, SELFPAY ==
[2022-08-13 10:07] VITALS: BMI 22.0
[2022-08-30 08:11] VITALS: BP 143/73; PULSE 78; RESP 16; TEMP 36.1; O2SAT 100; BMI 22.2
[2022-08-30] MEDS: LACTATED RINGERS 1,000 ML 150 ML IV CONT (08:24)
--- NOTE | 2022-08-30 09:06 | WPDANESEPPF ---
Anes - Initial Pre Proc Eval Procedure: Operation Date: 08/30/22 09:30 Proposed Procedures p Esophagogastroduodenoscopy EGD - Maxwell Hanna MD Date/Time: 08/30/22 09:06 Surgeon: Maxwell Hanna MD Pre Op Diagnosis: dysphagia Patient Data Age: 62 Gender: F Height: 1.7 m Weight: 64.5 kg Last Vital Signs Temp 97 F L 08/30/22 08:11 Pulse 78 08/30/22 08:11 Resp 16 08/30/22 08:11 BP 143/73 H 08/30/22 08:11 Pulse Ox 100 08/30/22 08:11 O2 Del Method Room Air 08/30/22 08:11 Allergies Allergy/AdvReac Type Severity Reaction Status Date / Time No Known Allergies Allergy Verified 08/30/22 08:10 Home Medications Medication Instructions Recorded Confirmed Type cholecalciferol (vitamin D3) 25 50 mcg PO DAILY 05/22/21 08/30/22 History mcg (1,000 unit) capsule (Vitamin D3) multivitamin 1 tablet PO DAILY 05/22/21 08/30/22 History vitamin E 268 mg (400 unit) capsule 400 unit PO DAILY 05/22/21 08/30/22 History pravastatin 10 mg tablet 10 mg PO DAILY 01/04/22 08/30/22 History estradiol 0.01% (0.1 mg/gram) 1 g vaginal 2XW #42.5 grams 04/28/22 08/30/22 Rx vaginal cream Patient hx anesthesia problems: none Family hx anesthesia problems: none Results Review: All pre-operative results and documents have been reviewed as part of the pre-operative evaluation. [facility] Past Medical History Medical History (Updated 01/21/22 @ 07:52 by Roberth Garcia DO) Esophageal ring Hypercholesterolemia Surgical History Surgical History (Updated 04/07/22 @ 08:47 by RONALDO Jim) H/O colonoscopy (~01/20/22) wnl per pt H/O cystoscopy (10/19/12) microscopic hematuria - no abnormal findings History of appendectomy History of hysterectomy 1995 or 1996 - hysterectomy/RSO - fibroid/endometriosis right ovary Family History Family History (Updated 04/07/22 @ 08:47 by RONALDO Jim) Daughter Hodgkin lymphoma, Onset Age: 30 Social History Social History (Updated 04/07/22 @ 08:48 by RONALDO Jim) Smoking status: Never smoker Alcohol intake: never Substance use: never Substance use type: does not use Living arrangements: with family Additional living arrangements comments: Additional occupation/education comments: customer trainer Gender identity (if verbalized by the patient): Female Sexual Orientation (if Verbalized by the Patient): Straight or Heterosexual Spiritual care concerns: No Anes - Eval Final PreProcedure Day of Procedure 08/30/22 09:06 Patient weight: normal Heart: regular rate and rhythm Lungs: clear to auscultation Airway: Mallampati scale class II Neurological: alert and oriented Last oral intake: >/= 8 hours ASA classification: II Emergent: no Anesthetic plan: proceed Anesthesia type and monitoring: general GIVS and standard monitoring Results Review: All pre-operative results and documents have been reviewed as part of the pre-operative evaluation. Informed Consent: The patient's anesthetic plan and its attendant risks and benefits were discussed with the patient/family/POA. Questions were solicited and answers provided to the satisfaction of the patient/family/POA.
--- NOTE | 2022-08-30 09:08 | PM.HPGS ---
History of Present Illness History of Present Illness Consent: Risks, benefits, and alternatives have been discussed and questions answered. Patient agrees to proceed with procedure. Chief complaint: dysphagia Narrative: Winter Santiago is a 62 year old female with esophageal ring dilated 2020, doing well until few months ago noted again progressive dysphagia Review of Systems Constitutional: Constitutional: Denies headache(s) and Denies weakness Eyes: Eyes: Denies blurry vision ENT: Reports Normal hearing present, Denies headache(s) and Denies neck pain Cardiovascular: Cardiovascular: Denies chest pain and Denies dyspnea Respiratory: Respiratory: Denies dyspnea Gastrointestinal: Gastrointestinal: Reports no additional gastrointestinal complaints Genitourinary: Genitourinary: Denies dysuria Musculoskeletal: Musculoskeletal: Denies neck pain Integumentary/Breasts: Skin/Breast: Denies dry skin Neurologic: Reports Normal hearing present, Denies headache(s) and Denies weakness Psychiatric: Psychiatric: Denies anxiety Endocrine: Endocrine: Denies change in body appearance Hematologic/Lymphatic: Hematologic/Lymphatic: Denies easy bleeding Allergic/Immunologic: Allergic/Immunologic: Denies urticaria PMFSH Past Medical History Medical History (Updated 08/30/22 @ 09:08 by Maxwell Hanna MD) Dysphagia Esophageal ring Hypercholesterolemia Surgical History Surgical History (Updated 04/07/22 @ 08:47 by RONALDO Jim) H/O colonoscopy (~01/20/22) wnl per pt H/O cystoscopy (10/19/12) microscopic hematuria - no abnormal findings History of appendectomy History of hysterectomy 1995 or 1996 - hysterectomy/RSO - fibroid/endometriosis right ovary Family History Family History (Updated 04/07/22 @ 08:47 by RONALDO Jim) Daughter Hodgkin lymphoma, Onset Age: 30 Social History Social History (Updated 04/07/22 @ 08:48 by RONALDO Jim) Smoking status: Never smoker Alcohol intake: never Substance use: never Substance use type: does not use Living arrangements: with family Additional living arrangements comments: 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 Gender identity (if verbalized by the patient): Female Sexual Orientation (if Verbalized by the Patient): Straight or Heterosexual Spiritual care concerns: No Meds Home Medications and Allergies Home Medications Medication Instructions Recorded Confirmed Type cholecalciferol (vitamin D3) 25 50 mcg PO DAILY 05/22/21 08/30/22 History mcg (1,000 unit) capsule (Vitamin D3) multivitamin 1 tablet PO DAILY 05/22/21 08/30/22 History vitamin E 268 mg (400 unit) capsule 400 unit PO DAILY 05/22/21 08/30/22 History pravastatin 10 mg tablet 10 mg PO DAILY 01/04/22 08/30/22 History estradiol 0.01% (0.1 mg/gram) 1 g vaginal 2XW #42.5 grams 04/28/22 08/30/22 Rx vaginal cream Allergies Allergy/AdvReac Type Severity Reaction Status Date / Time No Known Allergies Allergy Verified 08/30/22 08:10 Vital Signs Vital Signs - 24 hr 08/30/22 08:11 Temperature 97 F L Pulse Rate 78 Respiratory Rate 16 Blood Pressure 143/73 H Pulse Oximetry 100 Oxygen Delivery Room Air Exam Const: General: comfortable and no acute distress HENMT: Face/Nose/Sinus: Normal nares present Eyes: General: appearance normal, both eyes and all related structures Neck: Neck: no JVD Resp: Auscultation: clear to auscultation bilaterally Cardio: Rate: regular rate Rhythm: regular rhythm GI: Inspection: non-distended GI Palp: Yes Soft to palpation Skin: General skin exam: normal color Neuro: General: gait normal Speech: normal speech Extrem: General: normal to inspection Psych: Mental Status: mental status grossly normal Assessment and Plan Assessment and plan (1) Esophageal ring: Code(s): K22.2 - Esophageal obstruction Status: Acute
[2022-08-30 09:19] VITALS: BP 117/57; PULSE 67; RESP 19; O2SAT 95
[2022-08-30 09:29] VITALS: BP 123/68; PULSE 63; RESP 18; O2SAT 100
[2022-08-30 09:39] VITALS: BP 124/66; PULSE 61; RESP 19; O2SAT 100
== END 2022-08-30 09:57 | disposition home or self-care (01) ==
PROVIDERS: PCP Internal Medicine; Visit Provider Internal Medicine Gastroenterology
PROC: 0DJ08ZZ Inspection of Upper Intestinal Tract, Via Natural or Artificial Opening Endoscopic (ICD-10-PCS; CPT 43235; principal; 2022-08-30 09:30)
DX: K22.2 Esophageal obstruction (principal); K44.9 Diaphragmatic hernia without obstruction or gangrene; E78.00 Pure hypercholesterolemia, unspecified
CPT/HCPCS: 43249; C1726; J2704; J7120

== ENCOUNTER 2022-11-22 07:21 | Outpatient (CLI) | payer BC, SELFPAY ==
--- NOTE | ~2022-11-22 | MM_ITS ---
EXAMINATION: MM screening laci BI w brooklynn HISTORY: Screening mammogram TECHNIQUE: Craniocaudal and mediolateral oblique 3-D tomosynthesis images were obtained and synthetic 2-D images were generated. CAD analysis was submitted and interpreted. COMPARISON: November 20, 2021, November 19, 2020, November 12, 2019 bilateral screening mammogram examinations BREAST PARENCHYMAL COMPOSITION: There are scattered areas of fibroglandular density. FINDINGS: There is no evidence of suspicious mass, calcification, or architectural distortion to sugg est malignancy in either breast. There has been no suspicious interval change. IMPRESSION: 1. No mammographic evidence of malignancy. 2. Recommend routine screening mammography in one year. BI-RADS Category 1: Negative Reviewed, dictated and finalized at location A.
== END 2022-11-22 07:22 | disposition home or self-care (01) ==
LOC: CHSIMG 07:24
PROVIDERS: PCP Internal Medicine; Visit Provider Obstetrics & Gynecology
DX: Z12.31 Encounter for screening mammogram for malignant neoplasm of breast (principal)
CPT/HCPCS: 77063; 77067

== ENCOUNTER → 2023-03-15 11:15 | Outpatient (CLI) | payer BC, SELFPAY ==
--- NOTE | ~2023-03-15 | XR_ITS ---
XR knee RT min 4V DATE: 03/15/2023 11:33 INDICATION: Medial and posterior knee pain for one week. No injury. TECHNIQUE: [place] and standing AP, PA and lateral views COMPARISON: None FINDINGS: There is prominent enthesopathy of the patella at the insertions of the quadriceps and soares llar tendons. No fracture or dislocation or joint effusion. No periosteal reaction or bone destruction, radiopaque intra-articular loose body or chondrocalcinosis. There is minimal periarticular spurring at the patellofemoral and lateral compartments and mild loss of medial compartment joint space height. IMPRESSION: Mild tricompartment osteoarthritis Patellar enthesopathy Reviewed, dictated and finalized at location L.
--- NOTE | ~2023-03-15 | US_ITS ---
EXAMINATION: US venous doppler LE RT DATE: 03/15/2023 11:56 INDICATION: Right lower limb pain and swelling TECHNIQUE: Grayscale ultrasound images without and with compression and Doppler ultrasound images of the right lower extremity veins were obtained. COMPARISON: None. FINDINGS: The visualized portions of right common femoral vein, profunda (deep) femoral vein, femoral vein, pop liteal vein, peroneal trunk, posterior tibial veins, peroneal veins, gastrocnemius vein and greater s aphenous vein outflow are patent. IMPRESSION: 1. No deep venous thrombosis in the right lower limb. Reviewed, dictated and finalized at location A.
== END ==
PROVIDERS: PCP Internal Medicine; Visit Provider Internal Medicine
DX: M25.561 Pain in right knee (principal); R22.41 Localized swelling, mass and lump, right lower limb; M17.11 Unilateral primary osteoarthritis, right knee; M76.51 Patellar tendinitis, right knee
CPT/HCPCS: 73564; 93971

== ENCOUNTER 2023-12-12 07:19 | Outpatient (CLI) | payer BC, SELFPAY ==
--- NOTE | ~2023-12-12 | MM_ITS ---
EXAMINATION: MM screening laci BI w brooklynn HISTORY: Screening mammogram TECHNIQUE: Craniocaudal and mediolateral oblique 3-D tomosynthesis images were obtained and synthetic 2-D images were generated. CAD analysis was submitted and interpreted. COMPARISON: November 22, 2022, November 20, 2021, November 19, 2020, November 12, 2019 bilateral screening mammogra m examinations BREAST PARENCHYMAL COMPOSITION: There are scattered areas of fibroglandular density. FINDINGS: There is no evidence of suspicious mass, calcification, or architectural distortion to sugg est malignancy in either breast. There has been no suspicious interval change. IMPRESSION: 1. No mammographic evidence of malignancy. 2. Recommend routine screening mammography in one year. BI-RADS Category 1: Negative Reviewed, dictated and finalized at location A.
== END 2023-12-12 07:20 | disposition home or self-care (01) ==
LOC: CHSIMG 07:21
PROVIDERS: PCP Internal Medicine; Visit Provider Obstetrics & Gynecology
DX: Z12.31 Encounter for screening mammogram for malignant neoplasm of breast (principal)
CPT/HCPCS: 77063; 77067

== ENCOUNTER 2024-05-25 15:10 | Outpatient (CLI) | payer BC, SELFPAY ==
--- NOTE | ~2024-05-25 | XR_ITS ---
EXAMINATION: XR foot LT 2V DATE: 05/25/2024 15:27 INDICATION: Left foot pain. TECHNIQUE: 2 views of left foot were obtained. COMPARISON: None. FINDINGS: Alignment is normal. No fracture. There is mild osteoarthritis of first metatarsophalangeal joint and some of the interphalangeal and midfoot joints. There are enthesophytes at the posterior a nd plantar aspects of calcaneal tuberosity. IMPRESSION: 1. Mild polyarticular osteoarthritis. Reviewed, dictated and finalized at location A.
--- NOTE | ~2024-05-25 | XR_ITS ---
EXAMINATION: XR ankle LT min 3V DATE: 05/25/2024 15:26 INDICATION: Left ankle injury and pain. TECHNIQUE: 3 views of left ankle were obtained. COMPARISON: None. FINDINGS: Alignment is normal. There is an avulsion fracture of distal tip of fibula with 3 mm distra ction. There is mild osteoarthritis of talonavicular joint. There are enthesophytes at the posterior and plantar aspects of calcaneal tuberosity. There is an enthesophyte of medial malleolus. Ankle soft tissue swelling is noted. IMPRESSION: 1. Avulsion fracture of the distal tip of fibula. Reviewed, dictated and finalized at location A.
== END 2024-05-25 15:11 | disposition home or self-care (01) ==
LOC: CHSIMG 15:12
PROVIDERS: PCP Internal Medicine; Visit Provider Internal Medicine
DX: S82.832A Other fracture of upper and lower end of left fibula, initial encounter for closed fracture (principal); M19.072 Primary osteoarthritis, left ankle and foot
CPT/HCPCS: 73610; 73620

== ENCOUNTER 2024-07-02 10:03 | Outpatient (CLI) | payer BC, SELFPAY ==
--- NOTE | ~2024-07-02 | DEXA_ITS ---
Bone Density Report Name: VIRGIE COLEY Age: 64 Sex: Female Ethnicity: White Date of : 1960 Indication: osteopenia; height loss; prior fracture; hysterectomy; Referring Provider: Bishop Maynard Study: Bone densitometry was performed. Exam Date: July 02, 2024 Accession number: [id number] Bone Density: Region BMD T-score Z-score Classification AP Spine(L1-L4) 0.831 -2.0 -0.3 Osteopenia Femoral Neck (Left) 0.702 -1.3 0.1 Osteopenia Total Hip (Left) 0.767 -1.4 -0.3 Osteopenia Femoral Neck (Right) 0.683 -1.5 -0.1 Osteopenia Total Hip (Right) 0.787 -1.3 -0.2 Osteopenia Femoral Neck Mean 0.692 -1.4 0.0 Osteopenia Total Hip Mean 0.777 -1.4 -0.2 Osteopenia World Health Organization criteria for BMD impression classify patients as: Normal (T-score at or above -1.0), Osteopenia (T-score between -1.0 and -2.5), or Osteoporosis (T-score at or below -2.5). 10-year Fracture Risk(1): Major Osteoporotic Fracture 13% Hip Fracture 1.4% Reported Risk Factors: [place] (), Neck BMD=0.683, BMI=21.8, previous fracture (1) FRAX(R) Version 3.08. Fracture probability calculated for an untreated patient. Fracture probability may be lower if the patient has received treatment. Previous Exams: Region Exam Age BMD T-score BMD Change BMD Change Date g/cm2 vs Baseline vs Previous AP Spine (L1-L4) 07/02/2024 64 0.831 -2.0 0.001 (0.1%) 0.001 (0.1%) 12/25/2021 61 0.830 -2.0 Total Hip(Left) 07/02/2024 64 0.767 -1.4 -0.010 (-1.3%) -0.010 (-1.3%) 12/25/2021 61 0.777 -1.4 Total Hip(Right) 07/02/2024 64 0.787 -1.3 0.017 (2.2%) 0.017 (2.2%) 12/25/2021 61 0.770 -1.4 *Denotes significance at 95% confidence level, LSC for AP Spine = 0.022 g/cm2, LSC for Total Hip = 0.027 g/cm2 Clinical Information Provided by Patient: Has had a low trauma fracture Has used the following medications: Vitamin D Has the following medical conditions: Hysterectomy Patient maximum height was 67 Menopause Age: 51 No regular weight bearing exercise Drinks caffeinated beverages Onset of menses at age 17 Number of children 2 Impression: The patient has low bone mass, based on the Total Spine T-score. The patient has risk factors, including: previous fracture. No significant bone loss was observed. Discussion: BONE DENSITY IS LOW AT ONE OR MORE SKELETAL SITES. This patient's lowest T-score is low at one or more skeletal sites. It meets the World Health Organization's (WHO) criteria for ?low bone mass? (T-score between -1.0 and -2.5). The patient's 10-year risk of fracture as calculated by FRAX is less than the threshold where pharmacological therapy is recommended by the National Osteoporosis Foundation (NOF). However, all treatment decisions require clinical judgment and consideration of individual patient factors, including patient preferences, comorbidities, previous drug use, risk factors not captured in the FRAX model (e.g., frailty, falls, vitamin D deficiency, increased bone turnover, interval significant decline in bone density) and possible under or overestimation of fracture risk by FRAX. The patient should follow a healthful lifestyle (good nutrition with adequate calcium and vitamin D, and appropriate weight-bearing exercise). Follow-Up: Consider repeating this study in 2 to 3 years to reassess this patient's status, or sooner if there is some new clinical indication. Reported by: LOGAN on 07/03/2024 3:30:00 PM. Reviewed, dictated and finalized at location A.
== END 2024-07-02 10:04 | disposition home or self-care (01) ==
LOC: CHSIMG 10:06
PROVIDERS: PCP Internal Medicine; Visit Provider Internal Medicine
DX: M85.89 Other specified disorders of bone density and structure, multiple sites (principal)
CPT/HCPCS: 77080

== ENCOUNTER 2024-12-13 14:40 | Outpatient (CLI) | payer BC, SELFPAY ==
--- NOTE | ~2024-12-13 | MM_ITS ---
EXAMINATION: MM screening laci BI w [facility] HISTORY: Screening TECHNIQUE: Craniocaudal and mediolateral oblique 3-D tomosynthesis images were obtained and synthetic 2-D images were generated. CAD analysis was submitted and interpreted. COMPARISON: Comparison to multiple prior studies sequentially, with oldest reviewed study dated 11/01. BREAST PARENCHYMAL COMPOSITION: Dense: The breasts are heterogeneously dense, which may obscure small masses FINDINGS: There is no evidence of suspicious mass, calcification, or architectural distortion to sugg est malignancy in either breast. There has been no suspicious interval change. IMPRESSION: 1. No mammographic evidence of malignancy. 2. Recommend routine screening mammography in one year. BI-RADS Category 1: Negative Reviewed, dictated and finalized at location A.
== END 2024-12-13 14:41 | disposition home or self-care (01) ==
LOC: CHSIMG 14:43
PROVIDERS: PCP Internal Medicine; Visit Provider Obstetrics & Gynecology
DX: Z12.31 Encounter for screening mammogram for malignant neoplasm of breast (principal)
CPT/HCPCS: 77063; 77067